=== PATIENT | female | born 1995 | race Caucasian/White ===

== ENCOUNTER 2020-07-13 06:55 | Inpatient (IN) | payer BC ==
[2020-07-13] MEDS ORDERED: Sodium Chloride 0.9% 10 ML Syringe FLUSH PRN (07:05)
[2020-07-13] MEDS ORDERED: Ondansetron 4 MG/2 ML SDV IVPUSH PRN (07:05)
[2020-07-13] MEDS ORDERED: Nalbuphine 10 MG/1 ML Vial IVPUSH PRN (07:05)
--- NOTE | 2020-07-13 07:10 | PCM.LDHP ---
L&D History of Present Illness - General Date of Service: 07/13/20 Admit Problem/Dx: Patient Status Order with Admit Dx/Problem 07/13/20 07:07 Patient Status [ADT] Routine Admission Diagnosis/Problem Admission Diagnosis/Problem Normal in third trimester Source of Information: Patient History Limitations: Reports: No Limitations - History of Present Illness Introduction:: Patient is a 25 y/o at 40 5/7 wks who presents for post dates IOL. Doing well. Some contractions, but nothing patterned. 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: , Spontaneous : 2 Para: 0 Musculoskeletal History: Reports: None Neurological History: Reports: None Psychiatric History: Reports: None Endocrine/Metabolic History: Reports: None Hematologic History: Reports: None Immunologic History: Reports: None Oncologic (Cancer) History: Reports: None Dermatologic History: Reports: None - Infectious Disease History Infectious Disease History: Reports: None - Past Surgical History HEENT Surgical History: Reports: Oral Surgery (tooth extraction) Social & Family History - Family History Family Medical History: No Pertinent Family History - Tobacco Use Tobacco Use Status *Q: Never Tobacco User - Caffeine Use Caffeine Use: Reports: None - Alcohol Use Alcohol Use History: No - Recreational Drug Use Recreational Drug Use: No H&P Review of Systems - Review of Systems: Review Of Systems: See Below General: Reports: No Symptoms Pulmonary: Reports: No Symptoms Cardiovascular: Reports: No Symptoms Gastrointestinal: Reports: No Symptoms Genitourinary: Reports: No Symptoms Musculoskeletal: Reports: No Symptoms Psychiatric: Reports: No Symptoms Neurological: Reports: No Symptoms L&D Exam - Exam Exam: See Below - OB Specific Contraction Intensity: Irritability Movement: Active Heart Tones: Present Heart Tones per Min: 135 Heart Rate (FHR) Variability: Moderate (6-25 bmp) Presentation: Vertex - Franco Score Franco Score Cervix Position: Posterior Franco Score Consistency: Medium Franco Score Effacement: 51-70% Franco Score Dilation: 3-4 cm Franco Score 's Station: -2 Franco Score Total: 6 - Exam General: Alert, Oriented, Cooperative Lungs: Clear to Auscultation, Normal Respiratory Effort Cardiovascular: Regular Rate, Regular Rhythm GI/Abdominal Exam: Soft, Non-Tender Genitourinary: Normal external exam Extremities: Normal Inspection Skin: Warm, Dry, Intact - Patient Data Result Diagrams: 07/13/20 07:45 - Problem List (1) 40 weeks gestation of SNOMED Code(s): 74761538 ICD Code: Z3A.40 - 40 WEEKS GESTATION OF Status: Acute Current Visit: Yes Problem List Initiated/Reviewed/Updated: Yes Orders Last 24hrs: Active Orders 24 hr Category Date Time Status Patient Status [ADT] Routine ADT 07/13/20 07:07 Ordered Activity as Tolerated [RC] PFP Care 07/13/20 07:07 Ordered Communication Order [RC] ASDIRECTED Care 07/13/20 07:07 Ordered Communication Order [RC] ASDIRECTED Care 07/13/20 07:07 Ordered Communication Order [RC] ASDIRECTED Care 07/13/20 07:07 Ordered Communication Order [RC] ASDIRECTED Care 07/13/20 07:07 Ordered Monitoring [RC] INTERMITTENT Care 07/13/20 07:07 Ordered Non Stress Test [RC] PER UNIT ROUTINE Care 07/13/20 07:07 Ordered Notify Provider [RC] ASDIRECTED Care 07/13/20 07:07 Ordered Notify Provider [RC] PFP Care 07/13/20 07:07 Ordered Notify Provider [RC] PRN Care 07/13/20 07:07 Ordered Peripheral IV Care [RC] . DIRECTED Care 07/13/20 07:07 Ordered Up ad Anu [RC] ASDIRECTED Care 07/13/20 07:07 Ordered Vaginal Exam [RC] ASDIRECTED Care 07/13/20 07:07 Ordered Vital Signs [RC] ASDIRECTED Care 07/13/20 07:07 Ordered Regular Diet [DIET] Diet 07/13/20 Breakfast Ordered CBC W/O DIFF,HEMOGRAM [HEME] Routine Lab 07/13/20 07:05 Ordered CORONAVIRUS COVID-19 REGINA [MOLEC] Stat Lab 07/13/20 07:09 Ordered HEP C VIRUS AB [REF] Routine Lab 07/13/20 07:05 Ordered RAPID PLASMA REAGIN,RPR [CHEM] Routine Lab 07/13/20 07:07 Ordered TYPE AND SCREEN [BBK] Routine Lab 07/13/20 07:05 Ordered Lactated Ringers [Ringers, Lactated] 1,000 ml Med 07/13/20 07:15 Ordered IV ASDIRECTED Nalbuphine [Nubain] Med 07/13/20 07:05 Ordered 10 mg IVPUSH Q2H PRN Ondansetron [Zofran] Med 07/13/20 07:05 Ordered 4 mg IVPUSH Q4H PRN Oxytocin/Lactated Ringers [Pitocin in LR 10 Units/1,000 Med 07/13/20 07:15 Ordered ML] 10 unit in 1,000 ml IV .CONTINUOUS Oxytocin/Lactated Ringers [Pitocin in LR 10 Units/1,000 Med 07/13/20 07:15 Ordered ML] 10 unit in 1,000 ml IV TITRATE Sodium Chloride 0.9% [Saline Flush] Med 07/13/20 07:05 Ordered 10 ml FLUSH ASDIRECTED PRN miSOPROStoL [Cytotec] Med 07/13/20 07:05 Ordered 25 mcg VAG Q4H PRN Electronic Heart Tones Internal [WOMSER] Per Unit Oth 07/13/20 07:07 Ordered Routine Peripheral IV Insertion Adult [OM.PC] Routine Oth 07/13/20 07:07 Ordered Resuscitation Status Routine Resus Stat 07/13/20 07:05 Ordered Assessment/Plan Comment:: * Labs ordered * GBS negative * Cytotec for IOL - transition to pitocin/AROM when able * Pain management per patient preference * Anticipate
[2020-07-13] MEDS ORDERED: Oxytocin/Lactated Ringers 10 UNIT/1,000 ML BAG IV SCH ×2 (07:15)
[2020-07-13] MEDS: Misoprostol 25 MCG (1/4 of 100 MCG) Tab VAG PRN ×2 (07:23→11:36)
[2020-07-13] MEDS ORDERED: diphenhydrAMINE 50 MG/ML SDV IVPUSH PRN (07:48)
[2020-07-13] MEDS ORDERED: ePHEDrine 50 MG/ML SDV IVPUSH PRN (07:48)
[2020-07-13] MEDS ORDERED: fentaNYL 100 MCG/2 ML SDV EPIDUR PRN (07:48)
[2020-07-13] MEDS: Lactated Ringers 1,000 ML IV SCH ×2 (15:27→22:28)
[2020-07-13] MEDS: Bupivacaine/fentaNYL/NS 100 ML Bag EPIDUR PRN (22:11)
--- NOTE | 2020-07-13 22:36 | PCM.PREANE ---
Preanesthetic Assessment - Procedure Proposed Procedure: epidural - Anesthesia/Transfusion/Family Hx Anesthesia History: Prior Anesthesia Without Reaction Family History of Anesthesia Reaction: No Transfusion History: No Prior Transfusion(s) - Review of Systems General: Fatigue, Malaise Pulmonary: No Symptoms Cardiovascular: No Symptoms Gastrointestinal: Abdominal Pain (labor) Neurological: No Symptoms Other: Reports: None - Physical Assessment Vital Signs: Last Vital Signs Temp 37.2 C 07/13/20 07:07 Pulse Resp 14 07/13/20 07:07 BP 123/67 07/13/20 07:07 Pulse Ox 100 07/13/20 07:07 Height: 12.7 cm Weight: 75.432 kg ASA Class: 2 Mental Status: Alert & Oriented x3 Airway Class: Mallampati = 2 Dentition: Reports: Normal Dentition Thyro-Mental Finger Breadths: 3 Mouth Opening Finger Breadths: 3 ROM/Head Extension: Full Lungs: Clear to Auscultation, Normal Respiratory Effort Cardiovascular: Regular Rate, Regular Rhythm - Lab Values: Laboratory Last Values WBC 8.77 K/mm3 (3.98-10.04) 07/13/20 07:45 RBC 3.78 M/mm3 (3.98-5.22) L 07/13/20 07:45 Hgb 10.8 gm/dl (11.2-15.7) L 07/13/20 07:45 Hct 32.9 % (34.1-44.9) L 07/13/20 07:45 MCV 87.0 fl (79.4-94.8) 07/13/20 07:45 MCH 28.6 pg (25.6-32.2) 07/13/20 07:45 MCHC 32.8 g/dl (32.2-35.5) 07/13/20 07:45 RDW Std Deviation 38.2 fL (36.4-46.3) 07/13/20 07:45 Plt Count 293 K/mm3 (182-369) 07/13/20 07:45 MPV 9.3 fl (9.4-12.3) L 07/13/20 07:45 RPR Non-reactive (NONREACTIVE) 07/13/20 07:45 SARS-CoV-2 RNA ([place]) Negative (NEGATIVE) 07/13/20 07:25 Blood Type A POSITIVE 05/11/21 07:45 Gel Antibody Screen Negative 07/13/20 07:45 - Allergies Allergies/Adverse Reactions: Allergies Allergy/AdvReac Type Severity Reaction Status Date / Time No Known Allergies Allergy Verified 07/13/20 07:55 - Anesthesia Plan Pre-Op Medication Ordered: None - Acknowledgements Anesthesia Type Planned: Epidural Pt an Appropriate Candidate for the Planned Anesthesia: Yes Alternatives and Risks of Anesthesia Discussed w Pt/Guardian: Yes Pt/Guardian Understands and Agrees with Anesthesia Plan: Yes PreAnesthesia Questionnaire HEENT History: Reports: None Cardiovascular History: Reports: None Respiratory History: Reports: None Gastrointestinal History: Reports: None, GERD Genitourinary History: Reports: None CONTENT ANALYST History: Reports: , Spontaneous Other OB/BYN History: Hx of Chlamydia Musculoskeletal History: Reports: None Neurological History: Reports: None Psychiatric History: Reports: None Endocrine/Metabolic History: Reports: None Hematologic History: Reports: None Immunologic History: Reports: None Oncologic (Cancer) History: Reports: None Dermatologic History: Reports: None - Infectious Disease History Infectious Disease History: Reports: None - Past Surgical History HEENT Surgical History: Reports: Oral Surgery (tooth extraction) - SUBSTANCE USE Tobacco Use Status *Q: Never Tobacco User Second Hand Smoke Exposure: No Recreational Drug Use History: No - HOME MEDS Home Medications: Home Meds Pnv No.95/Ferrous Fum/Folic AC [ Tablet] 1 each PO DAILY 07/13/20 [History] - CURRENT (IN HOUSE) MEDS Current Meds: Current Medications Diphenhydramine HCl (Diphenhydramine 50 Mg/Ml Sdv) 25 mg IVPUSH Q6H PRN PRN Reason: pruritis Ephedrine Sulfate (Ephedrine 50 Mg/Ml Sdv) 5 mg IVPUSH ASDIRECTED PRN PRN Reason: Hypotension Fentanyl (Fentanyl 100 Mcg/2 Ml Sdv) 100 mcg EPIDUR Q3H PRN PRN Reason: Pain Last Admin: 07/13/20 22:10 Dose: 100 mcg Documented by: Fentanyl/Bupivacaine HCl (Bupivacaine/Fentanyl/Ns 100 Ml Bag) 100 ml EPIDUR ASDIRECTED PRN PRN Reason: Pain Last Admin: 07/13/20 22:11 Dose: 100 ml Documented by: Oxytocin/Lactated Ringer's (Pitocin In Lr 10 Units/1,000 Ml) 10 unit in 1,000 mls @ 12 mls/hr IV TITRATE JUANA; Protocol Last Titration: 07/13/20 18:45 Dose: 4 munits/min, 24 mls/hr Documented by: Oxytocin/Lactated Ringer's (Pitocin In Lr 10 Units/1,000 Ml) 10 unit in 1,000 mls @ 500 mls/hr IV .CONTINUOUS JUANA Lactated Ringer's (Ringers, Lactated) 1,000 mls @ 40 mls/hr IV ASDIRECTED JUANA Last Admin: 07/13/20 22:28 Dose: 40 mls/hr Documented by: Misoprostol (Misoprostol 25 Mcg (1/4 Of 100 Mcg) Tab) 25 mcg VAG Q4H PRN PRN Reason: cervical ripening Last Admin: 07/13/20 11:36 Dose: 25 mcg Documented by: Nalbuphine HCl (Nalbuphine 10 Mg/1 Ml Vial) 10 mg IVPUSH Q2H PRN PRN Reason: Pain Last Admin: 07/13/20 21:15 Dose: 10 mg Documented by: Ondansetron HCl (Ondansetron 4 Mg/2 Ml Sdv) 4 mg IVPUSH Q4H PRN PRN Reason: Nausea/Vomiting Sodium Chloride (Sodium Chloride 0.9% 10 Ml Syringe) 10 ml FLUSH ASDIRECTED PRN PRN Reason: Keep Vein Open
--- NOTE | 2020-07-13 22:49 | PCM.PNLD ---
Labor Progress Note - VS & Meds Vital Signs: Last Vital Signs Temp 37.2 C 07/13/20 07:07 Pulse Resp 14 07/13/20 07:07 BP 123/67 07/13/20 07:07 Pulse Ox 100 07/13/20 07:07 Active Medications: Current Medications Diphenhydramine HCl (Diphenhydramine 50 Mg/Ml Sdv) 25 mg IVPUSH Q6H PRN PRN Reason: pruritis Ephedrine Sulfate (Ephedrine 50 Mg/Ml Sdv) 5 mg IVPUSH ASDIRECTED PRN PRN Reason: Hypotension Fentanyl (Fentanyl 100 Mcg/2 Ml Sdv) 100 mcg EPIDUR Q3H PRN PRN Reason: Pain Last Admin: 07/13/20 22:10 Dose: 100 mcg Documented by: Fentanyl/Bupivacaine HCl (Bupivacaine/Fentanyl/Ns 100 Ml Bag) 100 ml EPIDUR ASDIRECTED PRN PRN Reason: Pain Last Admin: 07/13/20 22:11 Dose: 100 ml Documented by: Oxytocin/Lactated Ringer's (Pitocin In Lr 10 Units/1,000 Ml) 10 unit in 1,000 mls @ 12 mls/hr IV TITRATE JUANA; Protocol Last Titration: 07/13/20 18:45 Dose: 4 munits/min, 24 mls/hr Documented by: Oxytocin/Lactated Ringer's (Pitocin In Lr 10 Units/1,000 Ml) 10 unit in 1,000 mls @ 500 mls/hr IV .CONTINUOUS JUANA Lactated Ringer's (Ringers, Lactated) 1,000 mls @ 40 mls/hr IV ASDIRECTED JUANA Last Admin: 07/13/20 22:28 Dose: 40 mls/hr Documented by: Misoprostol (Misoprostol 25 Mcg (1/4 Of 100 Mcg) Tab) 25 mcg VAG Q4H PRN PRN Reason: cervical ripening Last Admin: 07/13/20 11:36 Dose: 25 mcg Documented by: Nalbuphine HCl (Nalbuphine 10 Mg/1 Ml Vial) 10 mg IVPUSH Q2H PRN PRN Reason: Pain Last Admin: 07/13/20 21:15 Dose: 10 mg Documented by: Ondansetron HCl (Ondansetron 4 Mg/2 Ml Sdv) 4 mg IVPUSH Q4H PRN PRN Reason: Nausea/Vomiting Sodium Chloride (Sodium Chloride 0.9% 10 Ml Syringe) 10 ml FLUSH ASDIRECTED PRN PRN Reason: Keep Vein Open - Uterine Contractions Uterine Monitoring Mode: External [place] Contraction Intensity: Moderate to Strong - Monitoring Monitor Mode: External Ultrasound Heart Rate (FHR) Baseline: 130 Heart Rate (FHR) Variability: Moderate (6-25 bmp) Accelerations: Present, 15x15 Decelerations: None Strip Review: Category I - Vaginal Exam Dilation (cm): 5 Effacement (Percent): 90 Station: -1 Cervical Position: Midposition - Labor Progress (Free Text) Labor Progress: After 2nd dose of cytotec patient started on pitocin. Labor began to kick in more and has been able to be titrated down to 1. Epidural just finished. AROM performed with release of meconium stained fluid. Continue present management
[2020-07-14] MEDS ORDERED: Bupivacaine 0.25% 10 ML SDV ONE (02:00)
[2020-07-14] MEDS: Bupivacaine/fentaNYL/NS 100 ML Bag EPIDUR PRN ×2 (05:29→12:15)
--- NOTE | 2020-07-14 07:13 | PCM.PNLD ---
Labor Progress Note - VS & Meds Vital Signs: Last Vital Signs Temp 37.2 C 07/13/20 07:07 Pulse Resp 14 07/13/20 07:07 BP 123/67 07/13/20 07:07 Pulse Ox 100 07/13/20 07:07 Active Medications: Current Medications Diphenhydramine HCl (Diphenhydramine 50 Mg/Ml Sdv) 25 mg IVPUSH Q6H PRN PRN Reason: pruritis Ephedrine Sulfate (Ephedrine 50 Mg/Ml Sdv) 5 mg IVPUSH ASDIRECTED PRN PRN Reason: Hypotension Fentanyl (Fentanyl 100 Mcg/2 Ml Sdv) 100 mcg EPIDUR Q3H PRN PRN Reason: Pain Last Admin: 07/13/20 22:10 Dose: 100 mcg Documented by: Fentanyl/Bupivacaine HCl (Bupivacaine/Fentanyl/Ns 100 Ml Bag) 100 ml EPIDUR ASDIRECTED PRN PRN Reason: Pain Last Admin: 07/14/20 05:29 Dose: 100 ml Documented by: Oxytocin/Lactated Ringer's (Pitocin In Lr 10 Units/1,000 Ml) 10 unit in 1,000 mls @ 12 mls/hr IV TITRATE JUANA; Protocol Last Titration: 07/13/20 18:45 Dose: 4 munits/min, 24 mls/hr Documented by: Oxytocin/Lactated Ringer's (Pitocin In Lr 10 Units/1,000 Ml) 10 unit in 1,000 mls @ 500 mls/hr IV .CONTINUOUS JUANA Lactated Ringer's (Ringers, Lactated) 1,000 mls @ 40 mls/hr IV ASDIRECTED JUANA Last Admin: 07/13/20 22:28 Dose: 40 mls/hr Documented by: Misoprostol (Misoprostol 25 Mcg (1/4 Of 100 Mcg) Tab) 25 mcg VAG Q4H PRN PRN Reason: cervical ripening Last Admin: 07/13/20 11:36 Dose: 25 mcg Documented by: Nalbuphine HCl (Nalbuphine 10 Mg/1 Ml Vial) 10 mg IVPUSH Q2H PRN PRN Reason: Pain Last Admin: 07/13/20 21:15 Dose: 10 mg Documented by: Ondansetron HCl (Ondansetron 4 Mg/2 Ml Sdv) 4 mg IVPUSH Q4H PRN PRN Reason: Nausea/Vomiting Last Admin: 07/14/20 06:37 Dose: 4 mg Documented by: Sodium Chloride (Sodium Chloride 0.9% 10 Ml Syringe) 10 ml FLUSH ASDIRECTED PRN PRN Reason: Keep Vein Open - Uterine Contractions Uterine Monitoring Mode: External [place] Contraction Intensity: Moderate to Strong - Monitoring Monitor Mode: External Ultrasound Heart Rate (FHR) Baseline: 145 Heart Rate (FHR) Variability: Moderate (6-25 bmp) Accelerations: Present, 15x15 Decelerations: None Strip Review: Category I - Vaginal Exam Dilation (cm): 9-10 Effacement (Percent): 90 Station: 0 Cervical Position: Midposition - Labor Progress (Free Text) Labor Progress: Doing well. Since AROM. Currently on 8 of Pitocin. Was 9 cm about an hour ago. Still about 9-10. Will rotate to hands/knees and reassess in another hour or so
--- NOTE | 2020-07-14 08:44 | PCM.PNLD ---
Labor Progress Note - VS & Meds Vital Signs: Last Vital Signs Temp 37.2 C 07/13/20 07:07 Pulse Resp 14 07/13/20 07:07 BP 123/67 07/13/20 07:07 Pulse Ox 100 07/13/20 07:07 Active Medications: Current Medications Diphenhydramine HCl (Diphenhydramine 50 Mg/Ml Sdv) 25 mg IVPUSH Q6H PRN PRN Reason: pruritis Last Admin: 07/14/20 08:23 Dose: 25 mg Documented by: Ephedrine Sulfate (Ephedrine 50 Mg/Ml Sdv) 5 mg IVPUSH ASDIRECTED PRN PRN Reason: Hypotension Fentanyl (Fentanyl 100 Mcg/2 Ml Sdv) 100 mcg EPIDUR Q3H PRN PRN Reason: Pain Last Admin: 07/13/20 22:10 Dose: 100 mcg Documented by: Fentanyl/Bupivacaine HCl (Bupivacaine/Fentanyl/Ns 100 Ml Bag) 100 ml EPIDUR ASDIRECTED PRN PRN Reason: Pain Last Admin: 07/14/20 05:29 Dose: 100 ml Documented by: Oxytocin/Lactated Ringer's (Pitocin In Lr 10 Units/1,000 Ml) 10 unit in 1,000 mls @ 12 mls/hr IV TITRATE JUANA; Protocol Last Titration: 07/13/20 18:45 Dose: 4 munits/min, 24 mls/hr Documented by: Oxytocin/Lactated Ringer's (Pitocin In Lr 10 Units/1,000 Ml) 10 unit in 1,000 mls @ 500 mls/hr IV .CONTINUOUS JUANA Lactated Ringer's (Ringers, Lactated) 1,000 mls @ 40 mls/hr IV ASDIRECTED JUANA Last Admin: 07/13/20 22:28 Dose: 40 mls/hr Documented by: Misoprostol (Misoprostol 25 Mcg (1/4 Of 100 Mcg) Tab) 25 mcg VAG Q4H PRN PRN Reason: cervical ripening Last Admin: 07/13/20 11:36 Dose: 25 mcg Documented by: Nalbuphine HCl (Nalbuphine 10 Mg/1 Ml Vial) 10 mg IVPUSH Q2H PRN PRN Reason: Pain Last Admin: 07/13/20 21:15 Dose: 10 mg Documented by: Ondansetron HCl (Ondansetron 4 Mg/2 Ml Sdv) 4 mg IVPUSH Q4H PRN PRN Reason: Nausea/Vomiting Last Admin: 07/14/20 06:37 Dose: 4 mg Documented by: Sodium Chloride (Sodium Chloride 0.9% 10 Ml Syringe) 10 ml FLUSH ASDIRECTED PRN PRN Reason: Keep Vein Open - Uterine Contractions Uterine Monitoring Mode: External [place] Contraction Intensity: Moderate to Strong - Monitoring Monitor Mode: External Ultrasound Heart Rate (FHR) Baseline: 150 Heart Rate (FHR) Variability: Moderate (6-25 bmp) Accelerations: Present, 15x15 Decelerations: Early Strip Review: Category I - Vaginal Exam Dilation (cm): 9-10 Effacement (Percent): 95 Station: 1 Cervical Position: Midposition - Labor Progress (Free Text) Labor Progress: Doing well. Was on hands/knees for about 1 hour. Now rechecked and about same dilation, but did descend into pelvis further. IUPC placed. Pitocin currently 8. Will continue to titrate as able and reassess in about an hour as status reassuring. Patient and family made aware if not able to achieve complete dilation will need to consider delivery
[2020-07-14] MEDS ORDERED: Acetaminophen 325 MG Tab PO STA (11:30)
[2020-07-14] MEDS ORDERED: Ampicillin 2 GM in Sodium Chloride 0.9% 100 ML IV ONE (11:30)
--- NOTE | 2020-07-14 13:14 | PCM.DEL ---
L & D Note - General Info Date of Service: 07/14/20 - Delivery Note Labor: Induced by ARM, Induced by Oxytocin Cervical Ripening Method: Misoprostil Delivery Outcome: Livebirth Delivery Method: Spontaneous Vaginal Delivery-Single Infant Delivery Mode: Spontaneous Presentation: Left Occiput Anterior (ELADIO) (compound presentation with posterior hand) Nuchal Cord: None Anesthesia Type: Epidural Amniotic Fluid Description: Meconium Stained Episiotomy Type: None Laceration: 2nd Degree, Labial, Vaginal Suture type: Vicryl Suture size: 2-0 Placenta: Intact, Spontaneous Cord: 3 Vessels Estimated Blood Loss: 300 Resuscitation Needed: Yes [place]: Bulb Syringe, Stimulated, Warmed, [place] Used, Warmer Used Delivery Comments (Free Text/Narrative):: Patient found to be complete and began pushing. With maternal pushing effort head delivered from ELADIO presentation. No nuchal cord. With gentle downward traction the shoulders did not immediately deliver. Did feel posterior hand by face/compound presentation which was thought reason why. Baby rotated slighting and deeper McRobert's done which did allow delivery of anterior shoulder. Remainder of quickly followed. placed on maternal abdomen. Cord clamped and cut. Cord segment for gas obtained. Cord blood obtained. Placenta allowed time to separate and expelled intact. Inspection of perineum showed a 2nd degree laceration which was repaired with a 2-0 Vicryl - General Info Date of Service: 07/15/20 - Patient Data Vitals - Most Recent: Last Vital Signs Temp 38.0 C 07/14/20 11:36 Pulse Resp 14 07/13/20 07:07 BP 123/67 07/13/20 07:07 Pulse Ox 100 07/13/20 07:07 Weight - Most Recent: 75.432 kg - Problem List & Annotations (1) 40 weeks gestation of SNOMED Code(s): 20257567 Code(s): Z3A.40 - 40 WEEKS GESTATION OF Status: Acute Current Visit: Yes (2) Meconium stained amniotic fluid, delivered, current hospitalization SNOMED Code(s): 526017471, 878437194 Code(s): O77.0 - LABOR AND DELIVERY COMPLICATED BY MECONIUM IN AMNIOTIC FLUID Status: Acute Current Visit: Yes (3) Chorioamnionitis SNOMED Code(s): 27791699 Code(s): O41.1290 - CHORIOAMNIONITIS, UNSP TRIMESTER, NOT APPLICABLE OR UNSP Status: Acute Current Visit: Yes Qualifiers: Fetus number: single or unspecified fetus Trimester: third trimester Qualified Code(s): O41.1230 - Chorioamnionitis, third trimester, not applicable or unspecified (4) Vaginal delivery SNOMED Code(s): 535279035 Code(s): O80 - ENCOUNTER FOR FULL-TERM UNCOMPLICATED DELIVERY Status: Acute Current Visit: Yes - Problem List Review Problem List Initiated/Reviewed/Updated: Yes - Assessment Assessment:: PPD#0 - Plan Plan:: * Routine cares * Breast feeding * No further antibiotics planned. S/p dose of Ampicillin and Gentamicin * Discharge home in 2 days
[2020-07-14] MEDS ORDERED: Benzocaine/Menthol 20%-0.5% Spray 56 GM Canister TOP PRN (13:49)
[2020-07-14] MEDS ORDERED: Acetaminophen 325 MG Tab PO PRN (13:49)
[2020-07-14] MEDS: Ibuprofen 600 MG Tab PO PRN (14:51)
[2020-07-14] MEDS: Docusate Sodium 100 MG Cap PO PRN (14:52)
[2020-07-14] MEDS: Witch Hazel Medicated Pads 40/Jar TOP PRN (14:52)
--- NOTE | 2020-07-15 06:16 | PCM.SN.2 ---
- Free Text/Narrative Note: 1200 Patient with elevated temporal temperature, but normal oral temperature. heart rate now elevated into 170's. Will treat with Ampicillin and Gentamicin for chorioamnionitis. Michelle Rodriguez MD
--- NOTE | 2020-07-15 07:21 | PCM.PNPP ---
- General Info Date of Service: 07/15/20 Functional Status: Reports: Pain Controlled, Tolerating Diet, Ambulating, Urinating - Review of Systems General: Reports: No Symptoms Pulmonary: Reports: No Symptoms Cardiovascular: Reports: No Symptoms Gastrointestinal: Reports: No Symptoms Genitourinary: Reports: No Symptoms Musculoskeletal: Reports: No Symptoms Neurological: Reports: No Symptoms - Patient Data Vital Signs - Most Recent: Last Vital Signs Temp 36.7 C 07/15/20 05:58 Pulse 72 07/15/20 05:58 Resp 16 07/15/20 05:58 BP 100/55 L 07/15/20 05:58 Pulse Ox 98 07/15/20 05:58 Weight - Most Recent: 75.432 kg I&O - Last 24 Hours: Intake & Output 07/14/20 07/15/20 07/15/20 22:59 06:59 14:59 Output Total 242 Balance -242 Med Orders - Current: Current Medications Acetaminophen (Acetaminophen 325 Mg Tab) 650 mg PO Q4H PRN PRN Reason: mild pain or fever Benzocaine/Menthol (Benzocaine/Menthol 20%-0.5% Dawson 56 Gm Canister) 0 gm TOP ASDIRECTED PRN PRN Reason: Perineal Comfort Measure Last Admin: 07/14/20 14:52 Dose: 1 can Documented by: Docusate Sodium (Docusate Sodium 100 Mg Cap) 100 mg PO BID PRN PRN Reason: Constipation Last Admin: 07/14/20 14:52 Dose: 100 mg Documented by: Ibuprofen (Ibuprofen 600 Mg Tab) 600 mg PO Q6H PRN PRN Reason: Mild pain or fever Last Admin: 07/14/20 14:51 Dose: 600 mg Documented by: Berry Zayas (Berry Zayas Medicated Pads 40/Jar) 1 pad TOP ASDIRECTED PRN PRN Reason: Perineal Comfort Measure Last Admin: 07/14/20 14:52 Dose: 1 tub Documented by: Discontinued Medications Acetaminophen (Acetaminophen 325 Mg Tab) 975 mg PO STAT STA Stop: 07/14/20 11:31 Last Admin: 07/14/20 11:36 Dose: 975 mg Documented by: Bupivacaine HCl (Bupivacaine 0.25% 10 Ml Sdv) 10 ml .ROUTE .STK-MED ONE Stop: 07/14/20 02:01 Diphenhydramine HCl (Diphenhydramine 50 Mg/Ml Sdv) 25 mg IVPUSH Q6H PRN PRN Reason: pruritis Last Admin: 07/14/20 08:23 Dose: 25 mg Documented by: Ephedrine Sulfate (Ephedrine 50 Mg/Ml Sdv) 5 mg IVPUSH ASDIRECTED PRN PRN Reason: Hypotension Fentanyl (Fentanyl 100 Mcg/2 Ml Sdv) 100 mcg EPIDUR Q3H PRN PRN Reason: Pain Last Admin: 07/13/20 22:10 Dose: 100 mcg Documented by: Fentanyl/Bupivacaine HCl (Bupivacaine/Fentanyl/Ns 100 Ml Bag) 100 ml EPIDUR ASDIRECTED PRN PRN Reason: Pain Last Admin: 07/14/20 12:15 Dose: 100 ml Documented by: Oxytocin/Lactated Ringer's (Pitocin In Lr 10 Units/1,000 Ml) 10 unit in 1,000 mls @ 12 mls/hr IV TITRATE JUANA; Protocol Last Titration: 07/14/20 09:15 Dose: 10 munits/min, 60 mls/hr Documented by: Oxytocin/Lactated Ringer's (Pitocin In Lr 10 Units/1,000 Ml) 10 unit in 1,000 mls @ 500 mls/hr IV .CONTINUOUS JUANA Last Admin: 07/14/20 13:21 Dose: 500 mls/hr Documented by: Lactated Ringer's (Ringers, Lactated) 1,000 mls @ 40 mls/hr IV ASDIRECTED JUANA Last Admin: 07/13/20 22:28 Dose: 40 mls/hr Documented by: Ampicillin Sodium 2 gm/ Sodium (Chloride) 100 mls @ 200 mls/hr IV ONETIME ONE Stop: 07/14/20 11:59 Last Admin: 07/14/20 11:28 Dose: 200 mls/hr Documented by: Gentamicin Sulfate 375 mg/ (Sodium Chloride) 109.375 mls @ 109.375 mls/hr IV ONETIME ONE Stop: 07/14/20 12:44 Last Admin: 07/14/20 11:51 Dose: 109.375 mls/hr Documented by: Misoprostol (Misoprostol 25 Mcg (1/4 Of 100 Mcg) Tab) 25 mcg VAG Q4H PRN PRN Reason: cervical ripening Last Admin: 07/13/20 11:36 Dose: 25 mcg Documented by: Nalbuphine HCl (Nalbuphine 10 Mg/1 Ml Vial) 10 mg IVPUSH Q2H PRN PRN Reason: Pain Last Admin: 07/13/20 21:15 Dose: 10 mg Documented by: Ondansetron HCl (Ondansetron 4 Mg/2 Ml Sdv) 4 mg IVPUSH Q4H PRN PRN Reason: Nausea/Vomiting Last Admin: 07/14/20 06:37 Dose: 4 mg Documented by: Sodium Chloride (Sodium Chloride 0.9% 10 Ml Syringe) 10 ml FLUSH ASDIRECTED PRN PRN Reason: Keep Vein Open - Infant Interaction Infant Disposition, : [place] in Room with Family Interaction: Holding Feeding: Attempted ; Nursed Fair/Poor Support Person: Significant Other - Recovery Exam Fundal Tone: Firm Fundal Level: At Umbilicus Fundal Placement: Midline Lochia Amount: Small Lochia Color: Rubra/Red Perineum Description: Edematous, Other (see below) Other Perinuem Description: 2nd degree with repair Episiotomy/Laceration: None Bladder Status: Voiding - Exam General: Alert, Oriented, Cooperative GI/Abdominal Exam: Soft, Non-Tender - Problem List & Annotations (1) 40 weeks gestation of SNOMED Code(s): 91279839 Code(s): Z3A.40 - 40 WEEKS GESTATION OF Status: Acute Current Visit: Yes (2) Meconium stained amniotic fluid, delivered, current hospitalization SNOMED Code(s): 697723829, 204472381 Code(s): O77.0 - LABOR AND DELIVERY COMPLICATED BY MECONIUM IN AMNIOTIC FLUID Status: Acute Current Visit: Yes (3) Chorioamnionitis SNOMED Code(s): 78114905 Code(s): O41.1290 - CHORIOAMNIONITIS, UNSP TRIMESTER, NOT APPLICABLE OR UNSP Status: Acute Current Visit: Yes Qualifiers: Fetus number: single or unspecified fetus Trimester: third trimester Qualified Code(s): O41.1230 - Chorioamnionitis, third trimester, not applicable or unspecified (4) Vaginal delivery SNOMED Code(s): 636686101 Code(s): O80 - ENCOUNTER FOR FULL-TERM UNCOMPLICATED DELIVERY Status: Acute Current Visit: Yes - Problem List Review Problem List Initiated/Reviewed/Updated: Yes - My Orders Last 24 Hours: My Active Orders 07/14/20 Lunch Regular Diet [DIET] 07/14/20 13:49 Acetaminophen [TylenoL] 650 mg PO Q4H PRN Benzocaine/Menthol [Dermoplast Pain Relief Dawson] See Dose Instructions TOP ASDIRECTED PRN Docusate Sodium [Colace] 100 mg PO BID PRN Ibuprofen [Motrin] 600 mg PO Q6H PRN witch Sonia [Tucks] 1 pad TOP ASDIRECTED PRN Heat Therapy [OM.PC] PRN 07/14/20 13:49 Activity as Tolerated [RC] PER UNIT ROUTINE Vital Signs [RC] 03,,, Assess Lochia [WOMSER] Per Unit Routine Assess Uterine Involution [WOMSER] Per Unit Routine Breast Pump [WOMSER] Per Unit Routine Ice Therapy [OM.PC] Per Unit Routine Perineal Care [OM.PC] Per Unit Routine Peripheral IV Discontinue [OM.PC] Routine Sitz Bath [OM.PC] Per Unit Routine 07/15/20 13:49 Heat Therapy [OM.PC] PRN - Assessment Assessment:: PPD#1 - Plan Plan:: * Routine cares * Breast feeding * Discharge home tomorrow
--- NOTE | 2020-07-15 07:46 | PCM48HPAN ---
Post Anesthesia Note - EVALUATION WITHIN 48HRS OF ANESTHETIC Vital Signs in Normal Range: Yes Patient Participated in Evaluation: Yes Respiratory Function Stable: Yes Airway Patent: Yes Cardiovascular Function Stable: Yes Hydration Status Stable: Yes Pain Control Satisfactory: Yes Nausea and Vomiting Control Satisfactory: Yes Mental Status Recovered: Yes Vital Signs: Last Vital Signs Temp 36.7 C 07/15/20 05:58 Pulse 72 07/15/20 05:58 Resp 16 07/15/20 05:58 BP 100/55 L 07/15/20 05:58 Pulse Ox 98 07/15/20 05:58
[2020-07-15] MEDS ORDERED: Acetaminophen 325 MG Tab PO SCH (09:00)
[2020-07-15] MEDS: Ibuprofen 600 MG Tab PO PRN (13:20)
[2020-07-15] MEDS: Docusate Sodium 100 MG Cap PO PRN (17:00)
[2020-07-15] MEDS: Witch Hazel Medicated Pads 40/Jar TOP PRN (20:04)
--- NOTE | 2020-07-16 07:22 | PCM.DCSUM1 ---
Discharge Summary - Discharge Data Discharge Date: 07/16/20 Discharge Disposition: Home, Self-Care 01 Condition: Good - Referral to Home Health Primary Care Physician: Michelle Rodriguez MD - Discharge Diagnosis/Problem(s) (1) 40 weeks gestation of SNOMED Code(s): 03610647 ICD Code: Z3A.40 - 40 WEEKS GESTATION OF Status: Acute Current Visit: Yes (2) Meconium stained amniotic fluid, delivered, current hospitalization SNOMED Code(s): 171589595, 506412620 ICD Code: O77.0 - LABOR AND DELIVERY COMPLICATED BY MECONIUM IN AMNIOTIC FLUID Status: Acute Current Visit: Yes (3) Chorioamnionitis SNOMED Code(s): 24237940 ICD Code: O41.1290 - CHORIOAMNIONITIS, UNSP TRIMESTER, NOT APPLICABLE OR UNSP Status: Acute Current Visit: Yes Qualifiers: Fetus number: single or unspecified fetus Trimester: third trimester Qualified Code(s): O41.1230 - Chorioamnionitis, third trimester, not applicable or unspecified (4) Vaginal delivery SNOMED Code(s): 474490432 ICD Code: O80 - ENCOUNTER FOR FULL-TERM UNCOMPLICATED DELIVERY Status: Acute Current Visit: Yes - Patient Summary/Data Complications: None Consults: None Recommended Follow-up Testing/Procedures: Follow up in 3 weeks for check Hospital Course: 25 y/o at 40 5/7 wks presented for post dates IOL. done with Cytotec an then pitocin/AROM. Progress well to complete dilation. Once complete and pushing did develop a fever and tachycardia c/w chorioamnionitis. Given Amp and Gent. Progressed to an uncomplicated . See delivery note. did well and was discharged home on PPD#2 - Patient Instructions Diet: Regular Diet as Tolerated Activity: As Tolerated Activity, Other: Pelvic rest for 6 weeks Driving: May Drive Today Showering/Bathing: May Shower Showering/Bathing, Other: May Bathe Notify Provider of: Fever, Increased Pain, Swelling and Redness, Drainage, Nausea and/or Vomiting - Discharge Plan *PRESCRIPTION DRUG MONITORING PROGRAM REVIEWED*: No *COPY OF PRESCRIPTION DRUG MONITORING REPORT IN PATIENT KEERTHI: No Home Medications: Home Meds Pnv No.95/Ferrous Fum/Folic AC [ Tablet] 1 each PO DAILY 07/13/20 [History] Docusate Sodium [Colace] 100 mg PO BID PRN cap 07/15/20 [Rx] Ibuprofen [Motrin] 600 mg PO Q6H PRN tablet 07/15/20 [Rx] Patient Handouts: Care After Vaginal Delivery Referrals: Michelle Rodriguez MD [Primary Care Provider] - (3 weeks for check ) - Discharge Summary/Plan Comment DC Time >30 min.: No - Patient Data Vitals - Most Recent: Last Vital Signs Temp 36.6 C 07/16/20 04:18 Pulse 86 07/16/20 04:18 Resp 16 07/16/20 04:18 BP 109/69 07/16/20 04:18 Pulse Ox 98 07/16/20 04:18 Weight - Most Recent: 75.432 kg I&O - Last 24 hours: Intake & Output 07/15/20 07/16/20 07/16/20 22:59 06:59 14:59 Intake Total 0 Balance 0 Lab Results - Last 24 hrs: Laboratory Results - last 24 hr 07/13/20 Range/Units 07:45 Hepatitis C Antibody <0.1 (0.0-0.9) s/co ratio Med Orders - Current: Current Medications Acetaminophen (Acetaminophen 325 Mg Tab) 650 mg PO Q4H PRN PRN Reason: mild pain or fever Last Admin: 07/15/20 07:53 Dose: 650 mg Documented by: Benzocaine/Menthol (Benzocaine/Menthol 20%-0.5% Dougherty 56 Gm Canister) 0 gm TOP ASDIRECTED PRN PRN Reason: Perineal Comfort Measure Last Admin: 07/14/20 14:52 Dose: 1 can Documented by: Docusate Sodium (Docusate Sodium 100 Mg Cap) 100 mg PO BID PRN PRN Reason: Constipation Last Admin: 07/15/20 17:00 Dose: 100 mg Documented by: Ibuprofen (Ibuprofen 600 Mg Tab) 600 mg PO Q6H PRN PRN Reason: Mild pain or fever Last Admin: 07/15/20 13:20 Dose: 600 mg Documented by: Berry Zayas (Berry Zayas Medicated Pads 40/Jar) 1 pad TOP ASDIRECTED PRN PRN Reason: Perineal Comfort Measure Last Admin: 07/15/20 20:04 Dose: 1 tub Documented by: Discontinued Medications Acetaminophen (Acetaminophen 325 Mg Tab) 975 mg PO STAT STA Stop: 07/14/20 11:31 Last Admin: 07/14/20 11:36 Dose: 975 mg Documented by: Bupivacaine HCl (Bupivacaine 0.25% 10 Ml Sdv) 10 ml .ROUTE .STK-MED ONE Stop: 07/14/20 02:01 Diphenhydramine HCl (Diphenhydramine 50 Mg/Ml Sdv) 25 mg IVPUSH Q6H PRN PRN Reason: pruritis Last Admin: 07/14/20 08:23 Dose: 25 mg Documented by: Ephedrine Sulfate (Ephedrine 50 Mg/Ml Sdv) 5 mg IVPUSH ASDIRECTED PRN PRN Reason: Hypotension Fentanyl (Fentanyl 100 Mcg/2 Ml Sdv) 100 mcg EPIDUR Q3H PRN PRN Reason: Pain Last Admin: 07/13/20 22:10 Dose: 100 mcg Documented by: Fentanyl/Bupivacaine HCl (Bupivacaine/Fentanyl/Ns 100 Ml Bag) 100 ml EPIDUR ASDIRECTED PRN PRN Reason: Pain Last Admin: 07/14/20 12:15 Dose: 100 ml Documented by: Oxytocin/Lactated Ringer's (Pitocin In Lr 10 Units/1,000 Ml) 10 unit in 1,000 mls @ 12 mls/hr IV TITRATE JUANA; Protocol Last Titration: 07/14/20 09:15 Dose: 10 munits/min, 60 mls/hr Documented by: Oxytocin/Lactated Ringer's (Pitocin In Lr 10 Units/1,000 Ml) 10 unit in 1,000 mls @ 500 mls/hr IV .CONTINUOUS JUANA Last Admin: 07/14/20 13:21 Dose: 500 mls/hr Documented by: Lactated Ringer's (Ringers, Lactated) 1,000 mls @ 40 mls/hr IV ASDIRECTED JUANA Last Admin: 07/13/20 22:28 Dose: 40 mls/hr Documented by: Ampicillin Sodium 2 gm/ Sodium (Chloride) 100 mls @ 200 mls/hr IV ONETIME ONE Stop: 07/14/20 11:59 Last Admin: 07/14/20 11:28 Dose: 200 mls/hr Documented by: Gentamicin Sulfate 375 mg/ (Sodium Chloride) 109.375 mls @ 109.375 mls/hr IV ONETIME ONE Stop: 07/14/20 12:44 Last Admin: 07/14/20 11:51 Dose: 109.375 mls/hr Documented by: Misoprostol (Misoprostol 25 Mcg (1/4 Of 100 Mcg) Tab) 25 mcg VAG Q4H PRN PRN Reason: cervical ripening Last Admin: 07/13/20 11:36 Dose: 25 mcg Documented by: Nalbuphine HCl (Nalbuphine 10 Mg/1 Ml Vial) 10 mg IVPUSH Q2H PRN PRN Reason: Pain Last Admin: 07/13/20 21:15 Dose: 10 mg Documented by: Ondansetron HCl (Ondansetron 4 Mg/2 Ml Sdv) 4 mg IVPUSH Q4H PRN PRN Reason: Nausea/Vomiting Last Admin: 07/14/20 06:37 Dose: 4 mg Documented by: Sodium Chloride (Sodium Chloride 0.9% 10 Ml Syringe) 10 ml FLUSH ASDIRECTED PRN PRN Reason: Keep Vein Open
[2020-07-16] MEDS: Ibuprofen 600 MG Tab PO PRN (09:26)
[2020-07-16] MEDS: Docusate Sodium 100 MG Cap PO PRN (09:26)
== END 2020-07-16 12:25 | disposition home or self-care (01) | DRG 560 ==
LOC: JD.OB 06:55 → OBSVTOIN 07-14 12:57 → JD.OB 07-14 12:58
PROVIDERS: ADMIT Obstetrics & Gynecology; ATTEND Obstetrics & Gynecology
PROC: 10E0XZZ Delivery of Products of Conception, External Approach (ICD-10-PCS; principal; 2020-07-14)
PROC: 10907ZC Drainage of Amniotic Fluid, Therapeutic from Products of Conception, Via Natural or Artificial Opening (ICD-10-PCS; 2020-07-14)
PROC: 0KQM0ZZ Repair Perineum Muscle, Open Approach (ICD-10-PCS; 2020-07-14)
PROC: 3E033VJ Introduction of Other Hormone into Peripheral Vein, Percutaneous Approach (ICD-10-PCS; 2020-07-14)
PROC: 3E0P7VZ Introduction of Hormone into Female Reproductive, Via Natural or Artificial Opening (ICD-10-PCS; 2020-07-14)
PROC: 10H07YZ Insertion of Other Device into Products of Conception, Via Natural or Artificial Opening (ICD-10-PCS; 2020-07-14)
PROC: 3E0R3BZ Introduction of Anesthetic Agent into Spinal Canal, Percutaneous Approach (ICD-10-PCS; 2020-07-14)
DX: O48.0 Post-term pregnancy (principal); Z37.0 Single live birth; O41.1230 Chorioamnionitis, third trimester, not applicable or unspecified; O77.0 Labor and delivery complicated by meconium in amniotic fluid; O70.1 Second degree perineal laceration during delivery; Z3A.40 40 weeks gestation of pregnancy; Z20.822 Contact with and (suspected) exposure to COVID-19
CPT/HCPCS: 01967; 36415; 51702; 59025; 59409; 85027; 86592; 86803; 86850; 86900; 86901; A9270-GY; J0290; J1200; J1580; J2300; J2405; J2590; J3010; J3490; J7120; U0002

== ENCOUNTER 2022-03-10 07:09 | Inpatient (IN) | payer OTHER ==
[~2022-03-10 07:09] MED LIST: Bupivacaine 0.25% 10 ML SDV ONE
[2022-03-10] MEDS ORDERED: Ondansetron 4 MG/2 ML SDV IVPUSH PRN ×2 (08:03→08:36)
[2022-03-10] MEDS ORDERED: Acetaminophen 325 MG Tab PO PRN ×2 (08:03→17:51)
[2022-03-10] MEDS ORDERED: Sodium Chloride 0.9% 10 ML Syringe FLUSH PRN (08:03)
[2022-03-10] MEDS ORDERED: Nalbuphine 10 MG/0.5 ML Syringe IVPUSH PRN (08:03)
[2022-03-10] MEDS ORDERED: Oxytocin/Lactated Ringers 10 UNIT/1,000 ML BAG IV SCH ×2 (08:15)
[2022-03-10] MEDS: Lactated Ringers 1,000 ML IV SCH ×2 (08:30→13:21)
[2022-03-10] MEDS ORDERED: ePHEDrine 50 MG/ML SDV IVPUSH PRN (08:36)
[2022-03-10] MEDS ORDERED: Phenylephrine 1% 10 MG/ML SDV IVPUSH PRN (08:36)
[2022-03-10] MEDS ORDERED: fentaNYL 100 MCG/2 ML SDV EPIDUR PRN (08:36)
[2022-03-10] MEDS ORDERED: diphenhydrAMINE 50 MG/ML SDV IVPUSH PRN (08:38)
[2022-03-10] MEDS ORDERED: Bupivacaine/fentaNYL/NS 100 ML Bag EPIDUR PRN (08:38)
[2022-03-10] MEDS ORDERED: Sodium Chloride 0.9% 10 ML Syringe FLUSH SCH (09:00)
[2022-03-10] MEDS ORDERED: Calcium Carbonate 500 MG Tab.Chew PO PRN (15:19)
[2022-03-10] MEDS ORDERED: Misoprostol 200 MCG Tab PO STA (16:11)
[2022-03-10] MEDS ORDERED: Misoprostol 200 MCG Tab ONE (16:13)
[2022-03-10] MEDS ORDERED: Witch Hazel Medicated Pads 40/Jar TOP PRN (17:51)
[2022-03-10] MEDS ORDERED: Docusate Sodium 100 MG Cap PO PRN (17:51)
[2022-03-10] MEDS ORDERED: Benzocaine/Menthol 20%-0.5% Spray 78 GM Cannister TOP PRN (17:51)
[2022-03-10] MEDS ORDERED: Ibuprofen 600 MG Tab PO PRN (17:51)
== END 2022-03-11 17:11 | disposition home or self-care (01) | DRG 807 ==
LOC: JD.OB 07:09 → UNDOADMOB 07:09 → INTOOBSV 07:09 → JD.OB 08:03 → OBSVTOIN 15:42 → JD.OB 15:43
PROVIDERS: ADMIT Obstetrics & Gynecology; ATTEND Obstetrics & Gynecology
PROC: 10E0XZZ Delivery of Products of Conception, External Approach (ICD-10-PCS; principal; 2022-03-10)
PROC: 10907ZC Drainage of Amniotic Fluid, Therapeutic from Products of Conception, Via Natural or Artificial Opening (ICD-10-PCS; 2022-03-10)
PROC: 3E033VJ Introduction of Other Hormone into Peripheral Vein, Percutaneous Approach (ICD-10-PCS; 2022-03-10)
PROC: 0HQ9XZZ Repair Perineum Skin, External Approach (ICD-10-PCS; 2022-03-10)
PROC: 3E0R3BZ Introduction of Anesthetic Agent into Spinal Canal, Percutaneous Approach (ICD-10-PCS; 2022-03-10)
PROC: 00HU33Z Insertion of Infusion Device into Spinal Canal, Percutaneous Approach (ICD-10-PCS; 2022-03-10)
DX: O69.81X0 Labor and delivery complicated by cord around neck, without compression, not applicable or unspecified (principal); Z37.0 Single live birth; O70.0 First degree perineal laceration during delivery; Z3A.40 40 weeks gestation of pregnancy; O77.0 Labor and delivery complicated by meconium in amniotic fluid; O99.62 Diseases of the digestive system complicating childbirth; K21.9 Gastro-esophageal reflux disease without esophagitis
CPT/HCPCS: 01967; 36415; 51701; 59025; 59409; 85027; 86592; 86850; 86900; 86901; A9270-GY; J2590; J3010; J3490; J7120

== ENCOUNTER 2023-10-22 02:50 | Inpatient (IN) | payer OTHER ==
[~2023-10-22 02:50] MED LIST changes: +Lidocaine 1% 10 ML MDV ONE; +Lidocaine 1.5% with EPINEPHrine 1:200,000 5 ML Amp ONE
[2023-10-22] MEDS ORDERED: Lidocaine 1% 50 ML MDV INJECT PRN (03:12)
[2023-10-22] MEDS ORDERED: Nalbuphine 10 MG/1 ML Vial IVPUSH PRN (03:12)
[2023-10-22] MEDS ORDERED: Sodium Chloride 0.9% 10 ML Syringe FLUSH PRN (03:12)
[2023-10-22] MEDS ORDERED: Oxytocin/0.9 % Sodium Chloride 30 UNIT/500 ML BAG IV SCH (03:15)
[2023-10-22 03:30] LABS: BASOPHILS ABSOLUTE AUTO 0.1 K/mm3 (0.0-0.2); BASOPHILS PERCENT AUTO 0.5 % (0.0-1.0); EOSINOPHILS ABSOLUTE AUTO 0.1 K/mm3 (0.0-0.4); EOSINOPHILS PERCENT AUTO 0.9 % (0.0-6.0); HEMATOCRIT 32.5 % (37.0-47.0); HEMOGLOBIN 10.3 gm/dl (12.0-16.0); IMMATURE GRAN ABSOLUTE AUTO 0.18 K/mm3 (0.00-0.05); IMMATURE GRAN PERCENT AUTO 1.6 % (0.0-0.4); LYMPHOCYTES ABSOLUTE AUTO 3.3 K/mm3 (1.0-4.8); LYMPHOCYTES PERCENT AUTO 30.1 % (24.0-44.0); MEAN CORPUSCULAR HEMOGLOBIN 24.6 pg (28.0-32.0); MEAN CORPUSCULAR HGB CONC 31.7 g/dl (32.0-36.0); MEAN CORPUSCULAR VOLUME 77.8 fl (83.0-99.0); MEAN PLATELET VOLUME 9.7 fl (9.4-12.3); MONOCYTES PERCENT AUTO 8.7 % (0.0-8.0); NEUTROPHILS ABSOLUTE AUTO 6.4 K/mm3 (1.8-7.7); NEUTROPHILS PERCENT AUTO 58.2 % (41.0-71.0); PLATELET COUNT,PLT 272 K/mm3 (150-400); RED BLOOD CELL COUNT 4.18 M/mm3 (4.10-5.30); WHITE BLOOD CELL COUNT,WBC 11.03 K/mm3 (3.9-11.3)
[2023-10-22] MEDS: Lactated Ringers 1,000 ML IV SCH (03:39)
[2023-10-22] MEDS ORDERED: diphenhydrAMINE 50 MG/ML SDV IVPUSH PRN (04:21)
[2023-10-22] MEDS ORDERED: ePHEDrine 50 MG/ML SDV IVPUSH PRN (04:21)
[2023-10-22] MEDS: fentaNYL 100 MCG/2 ML SDV EPIDUR PRN (04:34)
[2023-10-22] MEDS: Bupivacaine/fentaNYL/NS 100 ML Bag EPIDUR PRN (04:35)
[2023-10-22] MEDS ORDERED: Sodium Chloride 0.9% 10 ML Syringe FLUSH SCH (09:00)
[2023-10-22] MEDS: Oxytocin/0.9 % Sodium Chloride 30 UNIT/500 ML BAG IV SCH (09:14)
[2023-10-22] MEDS ORDERED: Docusate Sodium 100 MG Cap PO PRN (15:27)
[2023-10-22] MEDS ORDERED: Acetaminophen 325 MG Tab PO PRN (15:27)
[2023-10-22] MEDS: Witch Hazel Medicated Pads 40/Jar TOP PRN (16:35)
[2023-10-22] MEDS: Benzocaine/Menthol 20%-0.5% Spray 78 GM Cannister TOP PRN (16:35)
[2023-10-22] MEDS: Ibuprofen 600 MG Tab PO SCH (16:36)
== END 2023-10-23 19:50 | disposition home or self-care (01) | DRG 807 ==
LOC: JD.OBCHECK 02:50 → JD.OB 02:55 → JD.OBCHECK 03:13 → JD.OB 03:13 → OBSVTOIN 14:41 → JD.OB 15:43
PROVIDERS: ADMIT Obstetrics & Gynecology; ATTEND Obstetrics & Gynecology
PROC: 10D07Z6 Extraction of Products of Conception, Vacuum, Via Natural or Artificial Opening (ICD-10-PCS; principal; 2023-10-22)
PROC: 3E0R3BZ Introduction of Anesthetic Agent into Spinal Canal, Percutaneous Approach (ICD-10-PCS; 2023-10-22)
PROC: 00HU33Z Insertion of Infusion Device into Spinal Canal, Percutaneous Approach (ICD-10-PCS; 2023-10-22)
DX: O48.0 Post-term pregnancy (principal); Z37.0 Single live birth; O77.0 Labor and delivery complicated by meconium in amniotic fluid; Z3A.40 40 weeks gestation of pregnancy; O69.81X0 Labor and delivery complicated by cord around neck, without compression, not applicable or unspecified; O66.0 Obstructed labor due to shoulder dystocia
CPT/HCPCS: 36415; 51701; 59025; 59409; 85025; 86592; 86850; 86900; 86901; A9270-GY; C1758; J0665; J3010; J3490; J7120; J7999